=== PATIENT | male | born 2000 | race Caucasian/White ===

== ENCOUNTER 2024-07-29 14:36 | Inpatient (IN) ==
[2024-07-29 16:01] LABS: Basophils # (auto) 0.09 K/uL (0.00-0.20); Basophils % (auto) 1.3 %; Eosinophils # (auto) 0.45 K/uL (0.00-0.50); Eosinophils % (auto) 6.4 %; Hematocrit (blood only) 47.2 % (42.0-52.0); Hemoglobin 16.7 g/dl (14.0-18.0); Immature Granulocytes # (auto) 0.02 K/uL (0.01-0.20); Immature Granulocytes % (auto) 0.3 %; Lymphocytes # (auto) 1.92 K/uL (1.20-3.40); Lymphocytes % (auto) 27.4 %; Mean Corpuscular Hemoglobin 29.7 pg (25.0-34.0); Mean Corpuscular Hgb Conc 35.4 g/dL (32.0-36.0); Monocytes # (auto) 0.64 K/uL (0.11-0.59); Monocytes % (auto) 9.1 %; Neutrophils # (auto) 3.89 K/uL (1.40-6.50); Neutrophils % (auto) 55.5 %; Platelet Count 275 K/uL (130-400); RDW Coefficient of Variation 11.9 % (11.5-14.5); RDW Standard Deviation 36.3 fL (36.4-46.3); Red Blood Count 5.62 M/uL (4.70-6.10); White Blood Count 7.01 K/ul (4.8-10.8)
[2024-07-29 16:06] LABS: Appearance Urine Clear (Clear); Bilirubin Urine Negative (Negative); Blood Urine Negative (Negative); Color Urine Yellow; Glucose Urine UA Negative (Negative); Ketones Urine Trace (Negative); Leukocyte Esterase Urine Negative (Negative); Nitrite Urine Negative (Negative); Protein Urine Negative (Negative); Specific Gravity Urine 1.025 (1.000-1.030); Urobilinogen Urine Negative (Negative)
[2024-07-29 16:19] LABS: Acetaminophen < 3 ug/ml (10-30); Salicylate < 3.0 mg/dl (3.0-30)
[2024-07-29 16:52] LABS: Amphetamines+Metham, Urine Neg (Neg); Barbiturates, Urine Neg (Neg); Benzodiazepine, Urine Neg (Neg); Cocaine, Urine Neg (Neg); Fentanyl, Urine Neg (Neg); MDMA (Ecstacy), Urine Pos (Neg); Marijuana, Urine Neg (Neg); Methadone, Urine Neg (Neg); Opiate, Urine Neg (Neg); Phencyclidine, Urine Neg (Neg)
[2024-07-29 17:02] LABS: Albumin Globulin Ratio 1.7 (0.9-2); Albumin Level 4.7 gm/dl (3.4-5.0); Calcium 9.5 mg/dl (8.6-10.3); Creatinine Clr Calc Pharmacy 108.1 ml/min; Globulin 2.8 gm/dl (2.5-4.0); Potassium 4.5 mmol/L (3.5-5.1); Total Protein 7.5 gm/dl (6.0-8.3)
[2024-07-29 17:15] LABS: Thyroid Stimulating Hormone 1.104 uIu/ml (0.300-4.500)
--- NOTE | 2024-07-29 17:20 | Emergency Department Note ---
Impression & Plan Depression with suicidal ideation, Anxiety ED Provider Note NAME: DIANNA DONNELLY AGE: 24 SEX: M : 2000 ARRIVES VIA: Walk-In INFORMANT: Patient, ED PROVIDER(S): Dulce Henderson MD CHIEF COMPLAINT: Anxiety and suicidal thoughts HPI: This is a 24-year-old male presenting for anxiety/suicidal thoughts. Patient notes that he has been on multiple medication and Lexapro as well as trazodone. He is on venlafaxine as well. He notes that over the past few days/weeks his thoughts of anxiety been increasing. Last night he was concerned because he had thoughts of suicide by plan to overdose on trazodone. He has had passive suicidal thoughts over the past few days to weeks as well. He notes depression. He notes he is supposed to his counselor tomorrow. He did not tell his counselor about the specific plan to overdose. ROS: See above HPI for pertinent positives & negatives. A total of 10 systems reviewed and were otherwise negative. PHYSICAL EXAMINATION: General: resting comfortably in no acute distress Head: Normocephalic and atraumatic Eyes: Normal inspection, extraocular muscles intact Ear, nose, throat: Normal external exam Neck: Normal range of motion Respiratory: lungs clear to auscultation bilaterally Cardiovascular: Regular rate/rhythm, no murmur GI: soft, nontender, no guarding or rebound Extremities: nontender, moves all extremities Neuro: The patient awake and alert, appropriately conversive, no focal deficits, symmetric faces Skin: Warm, dry, and intact MEDICAL DECISION MAKING: This is a pleasant 24-year-old male presenting for anxiety/suicidal thoughts. Patient appears to have moderate insight into his own disease. He notes he feels increasingly anxious and depressed. He notes he is having suicidal thoughts as well as increasing stress from school work. His medical screening workup here is otherwise reassuring with normal lab work and urinalysis. With his plan yesterday to overdose, to have concern that patient may need further treatment. -Patient is agreeable to inpatient stay at this time. -Patient currently being evaluated 3 S. will sign outpatient oncoming physician, pending bed placement Differential diagnosis: SI, depression, anxiety Past Med/Surg History Problem List (Updated 07/29/24 @ 19:02 by Dulce Henderson MD) Anxiety (Acute) Depression with suicidal ideation (Acute) Social History Smoking Status: Never smoker Feels Safe at Home: Yes Gender Identity: Male Results & Data (ED) Vital Signs Vital Signs - 24 hr 07/29/24 14:44 07/29/24 17:56 Temperature 36.4 C L Temperature Source Skin Pulse Rate 66 Pulse Rate [Finger] 72 Pulse Rhythm [Finger] Regular Pulse Strength [Finger] Normal Respiratory Rate 20 18 Respiratory Effort / Characteristics Non-Labored Spontaneous Non-Labored Spontaneous Respiratory Depth Normal Normal Respiratory Pattern Regular Blood Pressure 146/92 H Blood Pressure [Left Arm] 133/76 Blood Pressure Mean 110 Blood Pressure Mean [Left Arm] 95 Blood Pressure Position [Left Arm] Semi-fowlers Pulse Oximetry 95 96 Oxygen Delivery Method Room Air Room Air Sepsis Recent Fever Within 48 Hours No Sepsis New/Unexplained Change in Mental Status N/A Sepsis Action Taken by Nursing No Action Required Laboratory Data 07/29/24 15:20 07/29/24 15:20 Lab Results 07/29/24 Range/Units 15:20 WBC 7.01 (4.8-10.8) K/ul RBC 5.62 (4.70-6.10) M/uL Hgb 16.7 (14.0-18.0) g/dl Hct 47.2 (42.0-52.0) % MCV 84.0 (80.0-100.0) fL MCH 29.7 (25.0-34.0) pg MCHC 35.4 (32.0-36.0) g/dL RDW Std Deviation 36.3 L (36.4-46.3) fL RDW Coeff of [place] 11.9 (11.5-14.5) % Plt Count 275 (130-400) K/uL MPV 10.0 (9.4-12.4) fL Immature Gran % (Auto) 0.3 % Neut % (Auto) 55.5 % Lymph % (Auto) 27.4 % [place] % (Auto) 9.1 % Eos % (Auto) 6.4 % Baso % (Auto) 1.3 % Neut # (Auto) 3.89 (1.40-6.50) K/uL Lymph # (Auto) 1.92 (1.20-3.40) K/uL [place] # (Auto) 0.64 H (0.11-0.59) K/uL Eos # (Auto) 0.45 (0.00-0.50) K/uL Baso # (Auto) 0.09 (0.00-0.20) K/uL Immature Gran # (Auto) 0.02 (0.01-0.20) K/uL Sodium 139 (136-145) mmol/L Potassium 4.5 (3.5-5.1) mmol/L Chloride 106 (98-107) mmol/L Carbon Dioxide 27 (21-32) mmol/L Anion Gap 6 (3-11) BUN 25 H (6-23) mg/dl Creatinine 1.19 (0.6-1.4) mg/dl Est Cr Clr Drug Dosing 108.1 ml/min eGFR 88.02 BUN/Creatinine Ratio 21.0 H (10-20) Glucose 91 (70-99(Fasting)) mg/dl Calcium 9.5 (8.6-10.3) mg/dl Total Bilirubin 1.0 (0.2-1.0) mg/dl AST 21 (13-39) U/L ALT 21 (7-52) U/L Alkaline Phosphatase 48 (34-104) U/L Total Protein 7.5 (6.0-8.3) gm/dl Albumin 4.7 (3.4-5.0) gm/dl Globulin 2.8 (2.5-4.0) gm/dl Albumin/Globulin Ratio 1.7 (0.9-2) TSH 1.104 (0.300-4.500) uIu/ml Urine Color Yellow Urine Appearance Clear (Clear) Urine pH 6.0 (4.5-7.5) Ur Specific [place] 1.025 (1.000-1.030) Urine Protein Negative (Negative) Urine Glucose (UA) Negative (Negative) Urine Ketones Trace H (Negative) Urine Blood Negative (Negative) Urine Nitrite Negative (Negative) Urine Bilirubin Negative (Negative) Urine Urobilinogen Negative (Negative) Ur Leukocyte Esterase Negative (Negative) Salicylates < 3.0 L (3.0-30) mg/dl Urine Opiates Screen Neg (Neg) Ur Methadone, Qual Neg (Neg) Urine Fentanyl Screen Neg (Neg) Acetaminophen < 3 L (10-30) ug/ml Urine Barbiturates Neg (Neg) Ur Phencyclidine (PCP) Neg (Neg) U Amphetamin/Meth Scrn Neg (Neg) MDMA (Ecstasy) Screen Pos H (Neg) U Benzodiazepines Scrn Neg (Neg) Ur Cocaine Metabolite Neg (Neg) U Marijuana (THC) Screen Neg (Neg) Ethyl Alcohol mg/dL < 10.0 (<10.0) mg/dl SARS-CoV-2, RNA, NAAT NEGATIVE (NEGATIVE) Discharge Plan Visit Data Chief Complaint: Mental Health Evaluation Stated Complaint: SEVERE ANXIETY AND SUICIDAL THOUGHTS ED Provider: Keyona Hernandez Discharge Problem: Depression with suicidal ideation, Anxiety Forms Stand Alone Forms: [facility], Suicide Prevention Resources Referrals [facility]: [facility] [Primary Care Provider] -
[2024-07-29] MEDS ORDERED: hydrOXYzine HCl 25 MG TAB PO PRN ×2 (21:52→22:52)
[2024-07-29] MEDS ORDERED: SODIUM CHLORIDE 0.65% NA SOLN 45 ML (OCEAN) PRN (22:52)
[2024-07-29] MEDS ORDERED: MAGNESIUM HYDROXIDE SUSP 30 ML UDC PO PRN (22:52)
[2024-07-29] MEDS ORDERED: ACETAMINOPHEN 325 MG TAB PO PRN (22:52)
[2024-07-29] MEDS ORDERED: ALUMINUM/MAGNESIUM SUSP 30 ML UDC PO PRN (22:52)
[2024-07-29] MEDS ORDERED: BISMUTH SUBSALICYLATE 262 MG CHEW PO PRN (22:52)
[2024-07-29] MEDS: traZODone HCL 50 MG TAB PO ONE (23:04)
--- NOTE | 2024-07-30 08:56 | History & Physical ---
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 Diagnostically consistent with major depressive disorder with suicidal ideation, generalized anxiety disorder with panic attacks, and sleep disturbance. Anxiety symptoms include rumination about academic performance and social interactions, with possible overlapping OCD features. Academic stressors are significant contributing factors to current presentation. History of restrictive eating disorder. Seems to have a lot of perfectionism and rigidity contributing to high academic standards and potentially contributing to why he experiences significant stress and panic symptoms related to large projects. Discussed medication treatment options in detail. Discussed risks, benefits and alternatives. Patient agreeable to medication adjustments including discontinuing Pristiq, decreasing Lexapro with earlier administration time, continuing trazodone, and adding clonidine for off-label use for anxiety/insomnia. Future medication considerations include potential switch to fluoxetine or alternative SSRI if OCD felt to be contributing to recent symptoms or trial of Trintellix versus augmentation strategies. Reviewed side effects including but not limited to: GI, PALMER, sexual side effects, and counseled on black box warning of potential for emergence of or increased SI and need to let staff know should this occur or should they feel unsafe. Also discussed importance of seeking emergency care following discharge if this side effect occurs in the future with trazodone and escitalopram; low BP/syncope with clonidine. Overall I spent a total of 85 minutes for this admission including review of chart records, review of labwork, direct evaluation of the patient, counseling the patient, ordering medication, risk assessment, discussion with the psychiatric liason RN and documentation in the electronic health record. (1) Depression with suicidal ideation: (2) MDD (major depressive disorder), recurrent episode, severe: (3) Generalized anxiety disorder with panic attacks: (4) Insomnia: Plan 07/30/2024: The patient was admitted to the [facility] ([facility]) on q15 min checks (behavioral with suicide precautions) for safety. The patient will participate in group, recreational, and milieu therapies and will be offered additional individual and family sessions as clinically appropriate. -Decrease escitalopram to 10mg daily with lunch -Start clonidine 0.05mg HS -Continue trazodone 50mg HS -Discontinue Pristiq - Rating Scales: - Adverse Childhood Experience Scale - OCD screening tool - Anxiety screening tool - Depression screening tool - Bipolar disorder screening tool - Borderline personality disorder screening tool Inventory Assets Strengths: supportive relationships, willing to get treatment Needs: safety and stabilization, medication adjustment, additional coping skills, increased outpatient services Suicide Risk Level Suicide Risk Level: High-Moderate (q15 min suicide checks) (depression and ruminative anxiety with SI and plan prior to admission but feels safe in the hospital, future-oriented about school, feels able to ask for support) Suicide Risk Level Comments: Risk Factors Assessment Male: Yes : Yes Do You Have Access To A Gun?: No Health Problems: No Mental Health Diagnoses: Yes Substance Use Disorders: No Previous Attempt: No Family History of Suicide: Yes Previous Psychiatric Hospitalization: No Hopelessness: No Protective Factors Assessment Employed: Yes Stable Relationships: Yes Supportive Family: Yes Good Rapport with Provider: Yes Psychiatric History Identifying Data DIANNA DONNELLY is a 24-year-old 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 Chief Complaint "I kind of feel lost, I'm coming here as a last resort". History of Present Illness He presents for psychiatric admission for worsening depression and SI with plan of overdosing on trazodone in the context of multiple psychosocial stressors including academic pressure. He's been having a lot of intrusive thoughts about anticipatory anxiety of projects and about his senior capstone. He's been ruminating on these concerns and struggles to set boundaries or move past these thoughts. This often keeps him awake at night until 5am or so but trazodone has been helping him get to sleep in the last week. Despite sleeping more he feels that his cognition/executive functioning is worse and then he's worried he's going to make a mistake and feels like "everything is crumbling" and this leads to a vicious cycle of not sleeping due to increased anxiety. This has been going on for almost three months and has continued to worsen. He endorses depressive symptoms including self-guilt, helplessness, decreased energy, concentration difficulty, diminished executive function, decision-making difficulties,decreased appetite, and decreased sleep. SI has been intermittent and chronic but shifted about a week ago to intensifying to the point of thinking about attempting on Monday (07/28/2024). He endorses significant anxiety including generalized worries, shakiness, urgency, easily overwhelmed and panic attacks as well as social anxiety. He is currently prescribed psychiatric medications: Pristiq 25mg daily (~2 weeks, unsure if any side effects, has coincided with highest intensity SI), escitalopram 15mg HS (started about 5 weeks ago, caused a lot of brain fog, dropped from 20mg two weeks ago ago, next Monday was supposed to drop to 10mg), propranolol 10mg (every other day for anxiety, helps a bit but sedating), trazodone 50mg HS (does help fall asleep and stay asleep but feels groggy the next day, lasts almost all day). He's been using caffeine pills to cope with fatigue and lack of sleep. Psychiatric ROS notable for no current nor history of symptoms of ivelisse, psychosis (did have some brief paranoia around age 14 &15 during a period of high anxiety) nor self-harm. Possible OCD-will replay conversations. History of eating disorder-age 13 started to restrict/"anorexia". More orthorexia recently, but he feels his relationship with food has improved. Past Psychiatric History Current Psychiatric Diagnosis: Unspecified depressive disorder Outpatient Services: [facility]-Dr. Bai for psychiatry therapy with Rodney Vides weekly Previous Psych Admissions: none Do You Have Access To A Gun?: No History of Previous Suicide Attempt: No Past Medication Trials: SSRIs-sertraline SNRIs-Effexor Wellbutrin no hx of buspar Vistaril Past Head Trauma/Neuro History History of Concussion/Seizure: No Allergies Allergy/AdvReac Type Severity Reaction Status Date / Time No Known Allergies Allergy Unverified 07/29/24 21:53 Home Medications Medication Instructions Recorded Confirmed Type desvenlafaxine succinate 25 mg 25 mg PO DAILY 07/30/24 07/30/24 History tablet,extended release 24 hr (Pristiq) escitalopram oxalate 10 mg tablet 15 mg PO DAILY 07/30/24 07/30/24 History (Lexapro) hydroxyzine HCl 25 mg tablet mg PO PRN Anxiety 07/30/24 History propranolol 10 mg tablet mg PO BID 07/30/24 History trazodone 50 mg tablet 50 mg PO HS PRN Insomnia 07/30/24 07/30/24 History Family History Family History of: Anxiety, Alcoholism/Drug Abuse and Suicide Attempts (father ) Family Mental Health History Comment: Father-30 yr sober, SI when young; Mom-anxiety Alcohol History Hx of Alcohol Use Over the Past 12 Months: No AUDIT Total Score: 0 Smoking Use Have You Smoked or Used Tobacco Products in the Last 30 Days: No Smoking Status: Never smoker Substance History Hx of Prescription Med Misuse Over the Past 12 Months: No Hx of Over the Counter Med Misuse Over the Past 12 Months: No Hx of Inhalent Misuse Over the Past 12 Months: No Hx of Organic Substance Use Over the Past 12 Months: No Hx of Illegal Substances/Street Drug Use Over Past 12 Months: No Problems as a Result of Past Substance Use: None Identified Personal History Living Arrangements: Home Highest Grade Completed: Some College (4th year in [employer]) 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) Marital Status: Single Beliefs That Will Affect Care: None Current Legal Problems: No Hx Legal Problems: No Patient History Medical History (Updated 07/30/24 @ 17:35 by Holly Mims MD) Anorexia Social History Smoking Status: Never smoker Preferred Language: Lithuanian Communication Ability: Effective 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: No Beliefs That Will Affect Care: None Feels Safe at Home: Yes Gender Identity: Male Assistive Devices: None Review of Systems Review of Systems: All systems reviewed & are unremarkable except as noted in HPI & below Physical Exam Psychiatric: Orientation: alert and oriented x 3 Apperance: appropriately dressed and appropriately groomed Eye Contact: good eye contact Motor Behavior: no abnormal motor movements Speech: normal rate/rhythm/volume of speech (soft) Affect: + depressed affect and + anxious affect Mood: + depressed mood and + anxious mood Thought Process: + circumstantial thought process Thought Content: reality based without delusions Suicidal Thoughts: denies suicidal plan and denies suicidal intent; + reports suicidal thoughts (intermittent ) Homicidal Thoughts: denies homicidal thoughts Hallucinations: no auditory hallucinations and no visual hallucinations Cognition: recent memory grossly intact, remote memory grossly intact, attention grossly intact and language grossly intact Estimated Intelligence: consistent with education level Insight: + fair insight Judgment: + fair judgement Vital Signs (Past 24 Hours): Last Vital Signs Temp 36.7 C 07/30/24 06:28 Pulse 64 07/30/24 06:29 Resp 16 07/30/24 06:28 BP 102/62 07/30/24 06:29 Pulse Ox 98 07/29/24 23:21 O2 Del Method Room Air 07/29/24 23:21 Exam Statement: A physical exam was performed in the ED by Dr. Henderson for the purposes of medical clearance. I accept that physical as correct and adequate for the purposes of the inpatient physical exam. Results & Data ([facility]) Laboratory Results Laboratory Results - last 24 hr 07/29/24 15:20 WBC 7.01 RBC 5.62 Hgb 16.7 Hct 47.2 MCV 84.0 MCH 29.7 MCHC 35.4 RDW Std Deviation 36.3 L RDW Coeff of [place] 11.9 Plt Count 275 MPV 10.0 Immature Gran % (Auto) 0.3 Neut % (Auto) 55.5 Lymph % (Auto) 27.4 [place] % (Auto) 9.1 Eos % (Auto) 6.4 Baso % (Auto) 1.3 Neut # (Auto) 3.89 Lymph # (Auto) 1.92 [place] # (Auto) 0.64 H Eos # (Auto) 0.45 Baso # (Auto) 0.09 Immature Gran # (Auto) 0.02 Sodium 139 Potassium 4.5 Chloride 106 Carbon Dioxide 27 Anion Gap 6 BUN 25 H Creatinine 1.19 Est Cr Clr Drug Dosing 108.1 eGFR 88.02 BUN/Creatinine Ratio 21.0 H Glucose 91 Calcium 9.5 Total Bilirubin 1.0 AST 21 ALT 21 Alkaline Phosphatase 48 Total Protein 7.5 Albumin 4.7 Globulin 2.8 Albumin/Globulin Ratio 1.7 TSH 1.104 Urine Color Yellow Urine Appearance Clear Urine pH 6.0 Ur Specific [place] 1.025 Urine Protein Negative Urine Glucose (UA) Negative Urine Ketones Trace H Urine Blood Negative Urine Nitrite Negative Urine Bilirubin Negative Urine Urobilinogen Negative Ur Leukocyte Esterase Negative Salicylates < 3.0 L Urine Opiates Screen Neg Ur Methadone, Qual Neg Urine Fentanyl Screen Neg Acetaminophen < 3 L Urine Barbiturates Neg Ur Phencyclidine (PCP) Neg U Amphetamin/Meth Scrn Neg Urine MDEA Pending MDMA (Ecstasy) Screen Pos H MDMA Pending Urine MDMA Pending U Benzodiazepines Scrn Neg Ur Cocaine Metabolite Neg U Marijuana (THC) Screen Neg Ethyl Alcohol mg/dL < 10.0 SARS-CoV-2, RNA, NAAT NEGATIVE Current Inpatient Medications Current Inpatient Medications: Current Inpatient Medications Acetaminophen (Acetaminophen 325 Mg Tab) 650 mg PO Q4H PRN PRN Reason: Headache or Minor Fever Stop: 08/28/24 22:51 Al Hydrox/Mg Hydrox/Simethicone (Aluminum/Magnesium Susp 30 Ml Udc) 30 ml PO Q4H PRN PRN Reason: GI Upset Stop: 08/28/24 22:51 Bismuth Subsalicylate (Bismuth Subsalicylate 262 Mg Chew) 2 tab PO Q30M PRN PRN Reason: Loose Stool/Diarrhea Stop: 08/28/24 22:51 Hydroxyzine HCl (Hydroxyzine Hcl 25 Mg Tab) 50 mg PO HSZ PRN PRN Reason: Insomnia Stop: 08/28/24 21:51 Hydroxyzine HCl (Hydroxyzine Hcl 25 Mg Tab) 25 mg PO Q4H PRN PRN Reason: Anxiety Stop: 08/28/24 22:51 Magnesium Hydroxide (Magnesium Hydroxide Susp 30 Ml Udc) 30 ml PO DAILY PRN PRN Reason: Constipation Stop: 08/28/24 22:51 Sodium Chloride (Sodium Chloride 0.65% Na Soln 45 Ml ([place])) 1 - 2 sprays NA PRN PRN PRN Reason: Nasal Dryness/Congestion Stop: 08/28/24 22:51
[2024-07-30] MEDS: ESCITALOPRAM OXALATE 10 MG TAB PO SCH (15:08)
[2024-07-30] MEDS: cloNIDine HCL 0.1 MG TAB PO SCH (22:05)
[2024-07-30] MEDS: traZODone HCL 50 MG TAB PO SCH (22:05)
--- NOTE | 2024-07-31 08:50 | Psychiatric Progress Note ---
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 Diagnostically consistent with major depressive disorder with suicidal ideation, generalized anxiety disorder with panic attacks, and sleep disturbance. Anxiety symptoms include rumination about academic performance and social interactions, with possible overlapping OCD features. Academic stressors are significant contributing factors to current presentation. History of restrictive eating disorder. Seems to have a lot of perfectionism and rigidity contributing to high academic standards and potentially contributing to why he experiences significant stress and panic symptoms related to large projects. A: Ongoing anxiety and depression with SI. Slept more easily last night with clonidine, no low BP, he consents to dose titration tonight to further target anxiety. Reviewed symptom questionnaires: MELQUIADES-7: 21, PHQ-9: 25, positive Tod BPD screen, negative Y-BOCS. Discussed medication treatment options in detail. Discussed risks, benefits and alternatives. Patient would like to start and consented to Paxil for depression/MELQUIADES. Reviewed side effects including but not limited to: GI, PALMER, sexual side effects, and counseled on black box warning of potential for emergence of or increased SI and need to let staff know should this occur or should they feel unsafe. Also discussed importance of seeking emergency care following discharge if this side effect occurs in the future. Overall, I spent a total of 50 minutes on this case including meeting with the patient, reviewing the chart, nursing report, multidisciplinary team meeting, orders, and documentation. (1) Depression with suicidal ideation: (2) MDD (major depressive disorder), recurrent episode, severe: (3) Generalized anxiety disorder with panic attacks: (4) Insomnia: (5) Borderline personality disorder: Plan 07/31/2024: -Discontinue escitalopram -Start Paxil 10mg daily 07/30/2024: The patient was admitted to the [facility] ([facility] mental health unit) on q15 min checks (behavioral with suicide precautions) for safety. The patient will participate in group, recreational, and milieu therapies and will be off ered additional individual and family sessions as clinically appropriate. -Decrease escitalopram to 10mg daily with lunch -Start clonidine 0.05mg HS -Continue trazodone 50mg HS -Discontinue Pristiq - Rating Scales: - Adverse Childhood Experience Scale - OCD screening tool - Anxiety screening tool - Depression screening tool - Bipolar disorder screening tool - Borderline personality disorder screening tool Inventory Assets Strengths: supportive relationships, willing to get treatment Needs: safety and stabilization, medication adjustment, additional coping skills, increased outpatient services Suicide Risk Level Suicide Risk Level: High-Moderate (q15 min suicide checks) (depression and ruminative anxiety with SI and plan prior to admission but feels safe in the hospital, future-oriented about school, feels able to ask for support) Suicide Risk Level Comments: Risk Factors Assessment Male: Yes : Yes Do You Have Access To A Gun?: No Health Problems: No Mental Health Diagnoses: Yes Substance Use Disorders: No Previous Attempt: No Family History of Suicide: Yes Previous Psychiatric Hospitalization: No Hopelessness: No Protective Factors Assessment Employed: Yes Stable Relationships: Yes Supportive Family: Yes Good Rapport with Provider: Yes Interval History Identifying Information DIANNA DONNELLY is a 24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 Chief Complaint "OK". Review of Systems Sleep Information Total Hours of Sleep: 6.25 Meal Information Percent Meal Consumed - Breakfast: 100 Percent Meal Consumed - Lunch: 100 Percent Meal Consumed - Dinner: 100 Subjective Subjective Patient was seen & assessed and interval progress reviewed with treatment team. Attending groups, rated mood as "unsure". Today reports "ok" mood. Still very anxious and depressed. Overwhelmed in thinking about how he will cope once he leaves the hospital. Endorses SI. Spoke to his mother who has done well on Paxil for many years. Fell asleep quickly last night. No dizziness or side effects fro m clonidine. No withdrawal side effects from Pristiq. Physical Exam Psychiatric Orientation: alert and oriented x 3 Apperance: appropriately dressed and appropriately groomed Eye Contact: good eye contact Motor Behavior: no abnormal motor movements Speech: normal rate/rhythm/volume of speech (soft) Affect: + depressed affect and + anxious affect Mood: + depressed mood and + anxious mood Thought Process: + circumstantial thought process Thought Content: reality based without delusions Suicidal Thoughts: denies suicidal plan and denies suicidal intent; + reports suicidal thoughts (intermittent ) Homicidal Thoughts: denies homicidal thoughts Hallucinations: no auditory hallucinations and no visual hallucinations Cognition: recent memory grossly intact, remote memory grossly intact, attention grossly intact and language grossly intact Estimated Intelligence: consistent with education level Insight: + fair insight Judgment: + fair judgement Vital Signs (Past 24 Hours) Last Vital Signs Temp 36.5 C 07/31/24 07:03 Pulse 75 07/31/24 07:06 Resp 16 07/31/24 07:03 BP 114/75 07/31/24 07:06 Pulse Ox 97 07/30/24 18:33 O2 Del Method Room Air 07/30/24 18:33 Results & Data ([facility]) Current Inpatient Medications Current Inpatient Medications: Current Inpatient Medications Acetaminophen (Acetaminophen 325 Mg Tab) 650 mg PO Q4H PRN PRN Reason: Headache or Minor Fever Stop: 08/28/24 22:51 Al Hydrox/Mg Hydrox/Simethicone (Aluminum/Magnesium Susp 30 Ml Udc) 30 ml PO Q4H PRN PRN Reason: GI Upset Stop: 08/28/24 22:51 Bismuth Subsalicylate (Bismuth Subsalicylate 262 Mg Chew) 2 tab PO Q30M PRN PRN Reason: Loose Stool/Diarrhea Stop: 08/28/24 22:51 Clonidine HCl (Clonidine Hcl 0.1 Mg Tab) 0.05 mg PO HS ARELI Stop: 08/29/24 21:59 Last Admin: 07/30/24 22:05 Dose: 0.05 mg Escitalopram Oxalate (Escitalopram Oxalate 10 Mg Tab) 10 mg PO DAILYBL ARELI Stop: 08/29/24 14:14 Last Admin: 07/30/24 22:05 Dose: 10 mg Hydroxyzine HCl (Hydroxyzine Hcl 25 Mg Tab) 50 mg PO HSZ PRN PRN Reason: Insomnia Stop: 08/28/24 21:51 Hydroxyzine HCl (Hydroxyzine Hcl 25 Mg Tab) 25 mg PO Q4H PRN PRN Reason: Anxiety Stop: 08/28/24 22:51 Magnesium Hydroxide (Magnesium Hydroxide Susp 30 Ml Udc) 30 ml PO DAILY PRN PRN Reason: Constipation Stop: 08/28/24 22:51 Sodium Chloride (Sodium Chloride 0.65% Na Soln 45 Ml ([place])) 1 - 2 sprays NA PRN PRN PRN Reason: Nasal Dryness/Congestion Stop: 08/28/24 22:51 Trazodone HCl (Trazodone Hcl 50 Mg Tab) 50 mg PO HS ARELI Stop: 08/29/24 21:59 Last Admin: 07/30/24 22:05 Dose: 50 mg Mental Health & Subst Abuse Tx Psychiatrist Name of Psychiatrist: Bhumika Gibson Psychiatrist's Date Of Appointment With Psychiatric Provider: 08/14/24 Time of Appointment with Psychiatrist: 1:30 PM Therapist Name of Therapist: Rodney Jin Therapist's Date of Therapist Appointment: 08/06/24 Time of Therapist Appointment: 5:00 PM Post Discharge Appointments Primary Care Physician Name Of Family Doctor/PCP: Pantera Pope Primary Care Provider Appointment Comment: [address] [place] [address] [address], [place] [address]
[2024-07-31] MEDS: PARoxetine HCL 10 MG TAB PO SCH (13:32)
[2024-07-31] MEDS: cloNIDine HCL 0.1 MG TAB PO SCH (21:11)
--- NOTE | 2024-08-01 08:41 | Psychiatric Progress Note ---
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 Diagnostically consistent with major depressive disorder with suicidal ideation, generalized anxiety disorder with panic attacks, and sleep disturbance. Anxiety symptoms include rumination about academic performance and social interactions, with possible overlapping OCD features. Academic stressors are significant contributing factors to current presentation. History of restrictive eating disorder. Seems to have a lot of perfectionism and rigidity contributing to high academic standards and potentially contributing to why he experiences significant stress and panic symptoms related to large projects. A: Ongoing anxiety and depression with SI. Tolerating medication changes but still with significant ruminations. Denies any SSRI withdrawal side effects from stopping escitalopram. Discussed option to trial abilify as off-label use for anxiety and depression augmentation. He consents to this and would like to try it. Discussed risks, benefits and alternatives. Reviewed side effects including but not limited to: movement (TD, NMS), cardiac (QTc prolongation), and metabolic (stroke, insulin resistance) and necessity for fasting lipid and glu cose labwork and AIMS done with score of 0. Reviewed strategies to help with cognitive distortions and build self-worth. Overall, I spent a total of 55 minutes on this case including meeting with the patient, reviewing the chart, nursing report, multidisciplinary team meeting, orders, and documentation. (1) Depression with suicidal ideation: (2) MDD (major depressive disorder), recurrent episode, severe: (3) Generalized anxiety disorder with panic attacks: (4) Insomnia: (5) Borderline personality disorder: Plan 08/01/2024: -Increased Paxil to 20mg daily -Add abilify 5mg daily -Fasting lipid panel, HbA1c, Vit D tomorrow AM 07/31/2024: -Discontinue escitalopram -Start Paxil 10mg daily 07/30/2024: The patient was admitted to the [facility] ([facility] mental health unit) on q15 min checks (behavioral with suicide precautions) for safety. The patient will participate in group, recreational, and milieu therapies and will be o ffered additional individual and family sessions as clinically appropriate. -Decrease escitalopram to 10mg daily with lunch -Start clonidine 0.05mg HS -Continue trazodone 50mg HS -Discontinue Pristiq - Rating Scales: - Adverse Childhood Experience Scale - OCD screening tool - Anxiety screening tool - Depression screening tool - Bipolar disorder screening tool - Borderline personality disorder screening tool Inventory Assets Strengths: supportive relationships, willing to get treatment Needs: safety and stabilization, medication adjustment, additional coping skills, increased outpatient services Suicide Risk Level Suicide Risk Level: High-Moderate (q15 min suicide checks) (depression and ruminative anxiety with SI and plan prior to admission but feels safe in the hospital, future-oriented about school, feels able to ask for support) Suicide Risk Level Comments: Risk Factors Assessment Male: Yes : Yes Do You Have Access To A Gun?: No Health Problems: No Mental Health Diagnoses: Yes Substance Use Disorders: No Previous Attempt: No Family History of Suicide: Yes Previous Psychiatric Hospitalization: No Hopelessness: No Protective Factors Assessment Employed: Yes Stable Relationships: Yes Supportive Family: Yes Good Rapport with Provider: Yes Interval History Identifying Information DIANNA DONNELLY is a 24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 Chief Complaint "That I'm not good enough". Review of Systems Sleep Information Total Hours of Sleep: 8 Meal Information Percent Meal Consumed - Breakfast: 100 Percent Meal Consumed - Lunch: 100 Percent Meal Consumed - Dinner: 100 Subjective Subjective Patient was seen & assessed and interval progress reviewed with nursing and social work. Going to groups. Did some puzzles with peers. Rated his mood "worried" last evening. Today he has been struggling with increased anxiety and depression. Notes that he had an anxiety attack and was observed with tearfulness by staff. He processes how his anxiety seemed to get set off by comparing his [employer] project to peers, negative feedback/harsh criticism by the project sponsor and increased pressure from professors. When we discussed what seems to be at the route of his anxiety he identifies that the idea of failure brings up a sense of "that I'm not good enough". He feels conflicted by his ongoing anxiety/depression and worrying he's made a mistake with inpatient treatment by getting himself into "an even deeper hole" with getting behind in his coursework. Discussed his BPD screening and he notes that the sense of chronic emptiness has been true for many years, he feels like almost a decade. Discussed how IOP with DBT could be very beneficial for this. Physical Exam Psychiatric Orientation: alert and oriented x 3 Apperance: appropriately dressed and appropriately groomed Eye Contact: good eye contact Motor Behavior: no abnormal motor movements Speech: normal rate/rhythm/volume of speech (soft) Affect: + depressed affect and + anxious affect Mood: + depressed mood and + anxious mood Thought Process: + circumstantial thought process and + perseveration Thought Content: reality based without delusions Suicidal Thoughts: denies suicidal plan and denies suicidal intent; + reports suicidal thoughts Homicidal Thoughts: denies homicidal thoughts Hallucinations: no auditory hallucinations and no visual hallucinations Cognition: recent memory grossly intact, remote memory grossly intact, attention grossly intact and language grossly intact Estimated Intelligence: consistent with education level Insight: + fair insight Judgment: + fair judgement Vital Signs (Past 24 Hours) Last Vital Signs Temp 36.5 C 08/01/24 06:00 Pulse 59 L 08/01/24 06:00 Resp 18 07/31/24 20:47 BP 111/70 08/01/24 06:31 Pulse Ox 96 07/31/24 20:47 O2 Del Method Room Air 07/31/24 20:47 Results & Data ([facility]) Current Inpatient Medications Current Inpatient Medications: Current Inpatient Medications Acetaminophen (Acetaminophen 325 Mg Tab) 650 mg PO Q4H PRN PRN Reason: Headache or Minor Fever Stop: 08/28/24 22:51 Al Hydrox/Mg Hydrox/Simethicone (Aluminum/Magnesium Susp 30 Ml Udc) 30 ml PO Q4H PRN PRN Reason: GI Upset Stop: 08/28/24 22:51 Bismuth Subsalicylate (Bismuth Subsalicylate 262 Mg Chew) 2 tab PO Q30M PRN PRN Reason: Loose Stool/Diarrhea Stop: 08/28/24 22:51 Clonidine HCl (Clonidine Hcl 0.1 Mg Tab) 0.1 mg PO HS ARELI Stop: 08/30/24 21:59 Last Admin: 07/31/24 21:11 Dose: 0.1 mg Hydroxyzine HCl (Hydroxyzine Hcl 25 Mg Tab) 50 mg PO HSZ PRN PRN Reason: Insomnia Stop: 08/28/24 21:51 Hydroxyzine HCl (Hydroxyzine Hcl 25 Mg Tab) 25 mg PO Q4H PRN PRN Reason: Anxiety Stop: 08/28/24 22:51 Magnesium Hydroxide (Magnesium Hydroxide Susp 30 Ml Udc) 30 ml PO DAILY PRN PRN Reason: Constipation Stop: 08/28/24 22:51 Paroxetine HCl (Paroxetine Hcl 20 Mg Tab) 20 mg PO QAM ARELI Stop: 08/31/24 08:59 Sodium Chloride (Sodium Chloride 0.65% Na Soln 45 Ml ([place])) 1 - 2 sprays NA PRN PRN PRN Reason: Nasal Dryness/Congestion Stop: 08/28/24 22:51 Trazodone HCl (Trazodone Hcl 50 Mg Tab) 50 mg PO HS ARELI Stop: 08/29/24 21:59 Last Admin: 07/31/24 21:10 Dose: 50 mg Mental Health & Subst Abuse Tx Psychiatrist Name of Psychiatrist: Bhumika Gibson Psychiatrist's Date Of Appointment With Psychiatric Provider: 08/14/24 Time of Appointment with Psychiatrist: 1:30 PM Therapist Name of Therapist: Rodney Jin Therapist's Date of Therapist Appointment: 08/06/24 Time of Therapist Appointment: 5:00 PM Post Discharge Appointments Primary Care Physician Name Of Family Doctor/PCP: Pantera Pope Primary Care Provider Appointment Comment: [address] [place] [address]. [address], [place] [address]
[2024-08-01] MEDS: PARoxetine HCL 20 MG TAB PO SCH (08:57)
[2024-08-01] MEDS: ARIPiprazole 5 MG TAB PO SCH (15:05)
--- NOTE | 2024-08-02 09:05 | Psychiatric Progress Note ---
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 Diagnostically consistent with major depressive disorder with suicidal ideation, generalized anxiety disorder with panic attacks, and sleep disturbance. Anxiety symptoms include rumination about academic performance and social interactions, with possible overlapping OCD features. Academic stressors are significant contributing factors to current presentation. History of restrictive eating disorder. Seems to have a lot of perfectionism and rigidity contributing to high academic standards and potentially contributing to why he experiences significant stress and panic symptoms related to large projects. A: Ongoing anxiety and depression with SI but less ruminative and a little less anxious today. Abilify causing sedation so will switch to HS dosing and lower dose tonight since he already got his AM dose. May then need to titrate HS dose back to 5mg tomorrow depending on efficacy and tolerability. Fasting labwork held until tomorrow due to lab collection delays this morning. Overall, I spent a total of 35 minutes on this case including meeting with the patient, reviewing the chart, nursing report, multidisciplinary team meeting, orders, and documentation. (1) Depression with suicidal ideation: (2) MDD (major depressive disorder), recurrent episode, severe: (3) Generalized anxiety disorder with panic attacks: (4) Insomnia: (5) Borderline personality disorder: Plan 08/02/2024: -Reduce dose of abilify to 2mg HS tonight, if tolerated tonight can then consider increase back to 5mg at HS tomorrow night 08/01/2024: -Increased Paxil to 20mg daily -Add abilify 5mg daily -Fasting lipid panel, HbA1c, Vit D tomorrow AM 07/31/2024: -Discontinue escitalopram -Start Paxil 10mg daily 07/30/2024: The [facility] on q15 min checks (behavioral with suicide precautions) for safety. The patient will participate in group, recreational, and milieu therapies and will be offered additional individual and family sessions as clinically appropriate. -Decrease escitalopram to 10mg daily with lunch -Start clonidine 0.05mg HS -Continue trazodone 50mg HS -Discontinue Pristiq - Rating Scales: - Adverse Childhood Experience Scale - OCD screening tool - Anxiety screening tool - Depression screening tool - Bipolar disorder screening tool - Borderline personality disorder screening tool Inventory Assets Strengths: supportive relationships, willing to get treatment Needs: safety and stabilization, medication adjustment, additional coping skills, increased outpatient services Suicide Risk Level Suicide Risk Level: Moderate (q15 min suicide checks) (depression and ruminative anxiety with SI and plan prior to admission but feels safe in the hospital, future-oriented about school, feels able to ask for support) Suicide Risk Level Comments: Risk Factors Assessment Male: Yes : Yes Do You Have Access To A Gun?: No Health Problems: No Mental Health Diagnoses: Yes Substance Use Disorders: No Previous Attempt: No Family History of Suicide: Yes Previous Psychiatric Hospitalization: No Hopelessness: No Protective Factors Assessment Employed: Yes Stable Relationships: Yes Supportive Family: Yes Good Rapport with Provider: Yes Interval History Identifying Information DIANNA DONNELLY is a 24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 Chief Complaint "A little drowsy". Review of Systems Sleep Information Total Hours of Sleep: 7.25 Meal Information Percent Meal Consumed - Breakfast: 100 Percent Meal Consumed - Lunch: 100 Percent Meal Consumed - Dinner: 100 Subjective Subjective Patient was seen & assessed and interval progress reviewed with treatment team. Attending all groups. Rated his mood as "tired". Today has more drowsiness , worse after taking abilify and napped last night after initial abilify dose. Did sleep better, fell asleep easily. Today feels like his ruminations are slightly less in that he can move past anxious thought a little more. Ongoing concerns about how he can manage his work given executive function challenges with the depression. Physical Exam Psychiatric Orientation: alert and oriented x 3 Apperance: appropriately dressed and appropriately groomed Eye Contact: good eye contact Motor Behavior: no abnormal motor movements Speech: normal rate/rhythm/volume of speech (soft) Affect: + depressed affect and + anxious affect Mood: + depressed mood and + anxious mood Thought Process: + circumstantial thought process Thought Content: reality based without delusions Suicidal Thoughts: denies suicidal plan and denies suicidal intent; + reports suicidal thoughts Homicidal Thoughts: denies homicidal thoughts Hallucinations: no auditory hallucinations and no visual hallucinations Cognition: recent memory grossly intact, remote memory grossly intact, attention grossly intact and language grossly intact Estimated Intelligence: consistent with education level Insight: + fair insight Judgment: + fair judgement Vital Signs (Past 24 Hours) Last Vital Signs Temp 36.6 C 08/02/24 06:00 Pulse 73 08/02/24 06:19 Resp 16 08/02/24 06:00 BP 106/69 08/02/24 06:19 Pulse Ox 97 08/02/24 06:00 O2 Del Method Room Air 08/02/24 06:00 Results & Data ([facility]) Current Inpatient Medications Current Inpatient Medications: Current Inpatient Medications Acetaminophen (Acetaminophen 325 Mg Tab) 650 mg PO Q4H PRN PRN Reason: Headache or Minor Fever Stop: 08/28/24 22:51 Al Hydrox/Mg Hydrox/Simethicone (Aluminum/Magnesium Susp 30 Ml Udc) 30 ml PO Q4H PRN PRN Reason: GI Upset Stop: 08/28/24 22:51 Aripiprazole (Aripiprazole 5 Mg Tab) 5 mg PO QAM ARELI Stop: 08/31/24 14:59 Last Admin: 08/02/24 08:12 Dose: 5 mg Bismuth Subsalicylate (Bismuth Subsalicylate 262 Mg Chew) 2 tab PO Q30M PRN PRN Reason: Loose Stool/Diarrhea Stop: 08/28/24 22:51 Clonidine HCl (Clonidine Hcl 0.1 Mg Tab) 0.1 mg PO HS ARELI Stop: 08/30/24 21:59 Last Admin: 08/01/24 21:03 Dose: 0.1 mg Hydroxyzine HCl (Hydroxyzine Hcl 25 Mg Tab) 50 mg PO HSZ PRN PRN Reason: Insomnia Stop: 08/28/24 21:51 Hydroxyzine HCl (Hydroxyzine Hcl 25 Mg Tab) 25 mg PO Q4H PRN PRN Reason: Anxiety Stop: 08/28/24 22:51 Magnesium Hydroxide (Magnesium Hydroxide Susp 30 Ml Udc) 30 ml PO DAILY PRN PRN Reason: Constipation Stop: 08/28/24 22:51 Paroxetine HCl (Paroxetine Hcl 20 Mg Tab) 20 mg PO QAM ARELI Stop: 08/31/24 08:59 Last Admin: 08/02/24 08:12 Dose: 20 mg Sodium Chloride (Sodium Chloride 0.65% Na Soln 45 Ml ([place])) 1 - 2 sprays NA PRN PRN PRN Reason: Nasal Dryness/Congestion Stop: 08/28/24 22:51 Trazodone HCl (Trazodone Hcl 50 Mg Tab) 50 mg PO HS ARELI Stop: 08/29/24 21:59 Last Admin: 08/01/24 21:02 Dose: 50 mg Mental Health & Subst Abuse Tx Psychiatrist Name of Psychiatrist: Bhumika Gibson Psychiatrist's Date Of Appointment With Psychiatric Provider: 08/14/24 Time of Appointment with Psychiatrist: 1:30 PM Therapist Name of Therapist: Rodney Jin Therapist's Date of Therapist Appointment: 08/06/24 Time of Therapist Appointment: 5:00 PM Post Discharge Appointments Primary Care Physician Name Of Family Doctor/PCP: Pantera Pope Primary Care Provider Appointment Comment: [address] [facility] [address], [place] [address]
[2024-08-02 17:48] LABS: MDA negative; MDEA negative; MDMA (Ecstasy) Urine, Confirm negative
[2024-08-02] MEDS: ARIPiprazole 2 MG TAB PO SCH (22:52)
[2024-08-03 08:06] LABS: Estimated Average Glucose 103 mg/dl; Hemoglobin A1C 5.2 % (4.5-5.6)
[2024-08-03 08:08] LABS: Chol HDL Ratio 3.5 (0-5)
[2024-08-03] MEDS: CHOLECALCIFEROL 125 MCG (5,000 UNITS) TAB PO SCH (13:22)
--- NOTE | 2024-08-03 16:44 | Psychiatric Progress Note ---
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 A:Reviewed patient's mood history and concern for persistent depressive disorder. Patient sensitive to sedation effects of medication and will dose Abilify and paroxetine at bedtime. He presents a strong family history of depression. Labs resulted with an insufficient vitamin D and we will start supplementation. Today we discussed cognitive behavioral therapy including the thought mood behavior cycle, negative automatic thoughts, and a thought record. Overall, I spent a total of 45 minutes on this case including meeting with the patient, reviewing the chart, nursing report, multidisciplinary team meeting, orders, and documentation. (1) Generalized anxiety disorder with panic attacks: (2) Persistent depressive disorder with anxious distress, currently moderate: (3) Borderline personality disorder: (4) Insomnia: Plan 08/03/2024: Start vitamin D 5000 units daily. Decrease clonidine to 0.05 mg at bedtime. Schedule paroxetine 20 mg at bedtime. 08/02/2024: -Reduce dose of abilify to 2mg HS tonight, if tolerated tonight can then consider increase back to 5mg at HS tomorrow night 08/01/2024: -Increased Paxil to 20mg daily -Add abilify 5mg daily -Fasting lipid panel, HbA1c, Vit D tomorrow AM 07/31/2024: -Discontinue escitalopram -Start Paxil 10mg daily 07/30/2024: The patient was admitted to the [facility] ([facility] mental health unit) on q15 min checks (behavioral with suicide precautions) for safety. The patient will participate in group, recreational, and milieu therapies and will be offered additional individual and family sessions as clinically appropriate. -Decrease escitalopram to 10mg daily with lunch -Start clonidine 0.05mg HS -Continue trazodone 50mg HS -Discontinue Pristiq - Rating Scales: - Adverse Childhood Experience Scale - OCD screening tool - Anxiety screening tool - Depression screening tool - Bipolar disorder screening tool - Borderline personality disorder screening tool Inventory Assets Strengths: supportive relationships, willing to get treatment Needs: safety and stabilization, medication adjustment, additional coping skills, increased outpatient services Suicide Risk Level Suicide Risk Level: Moderate (q15 min suicide checks) (depression and ruminative anxiety with SI and plan prior to admission but feels safe in the hospital, f uture-oriented about school, feels able to ask for support) Suicide Risk Level Comments: Risk Factors Assessment Male: Yes : Yes Do You Have Access To A Gun?: No Health Problems: No Mental Health Diagnoses: Yes Substance Use Disorders: No Previous Attempt: No Family History of Suicide: Yes Previous Psychiatric Hospitalization: No Hopelessness: No Protective Factors Assessment Employed: Yes Stable Relationships: Yes Supportive Family: Yes Good Rapport with Provider: Yes Interval History Identifying Information DIANNA DONNELLY is a 24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 Chief Complaint Anxiety, Depression Review of Systems Sleep Information Total Hours of Sleep: 5.5 Meal Information Percent Meal Consumed - Breakfast: 85 Percent Meal Consumed - Lunch: 100 Percent Meal Consumed - Dinner: 100 Subjective Subjective Patient was seen & assessed and interval progress reviewed with treatment team nursing and social work Patient reports having increased fatigue from Abilify. Reports less racing thoughts. Reports longstanding insomnia. Endorses chronic depression with anhedonia, disrupted sleep, poor self-esteem. Says his coping skills have stopped working. Has tried different antidepressants with poor effect. Family history of depression in mother and father. Mother has improved on Paxil and trazodone. Reports constantly questioning himself and his actions. Fear of future anxiety. Says he does not value himself. 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 Denies past periods of decreased need for sleep with elevated energy, mood, goal directed activity. Reports Wellbutrin was ineffective in the past for depression. Physical Exam Mental Examination Appearance: Well Groomed Eye Contact: Maintains Eye Contact Motor Behavior: Unremarkable Speech: Normal and Soft Mood: Anxious Affect: Calm and Constricted Thought Process: Intact Thought Content: Racing Hallucinations: None Insight: Fair Judgement: Fair Vital Signs (Past 24 Hours) Last Vital Signs Temp 36.4 C L 08/03/24 06:13 Pulse 81 08/03/24 06:13 Resp 16 08/03/24 06:13 BP 104/66 08/03/24 06:13 Pulse Ox 97 08/02/24 06:00 O2 Del Method Room Air 08/02/24 06:00 Results & Data ([facility]) Laboratory Results Laboratory Results - last 24 hr 07/29/24 08/03/24 15:20 07:32 Estimat Average Glucose 103 Hemoglobin A1c 5.2 Triglycerides 65 Cholesterol 155 LDL Cholesterol, Calc 98 VLDL Cholesterol, Calc 13 HDL Cholesterol 44 Cholesterol/HDL Ratio 3.5 25-OH Vitamin D Total 20.6 L Urine MDEA negative MDMA negative Urine MDMA negative Current Inpatient Medications Current Inpatient Medications: Current Inpatient Medications Acetaminophen (Acetaminophen 325 Mg Tab) 650 mg PO Q4H PRN PRN Reason: Headache or Minor Fever Stop: 08/28/24 22:51 Al Hydrox/Mg Hydrox/Simethicone (Aluminum/Magnesium Susp 30 Ml Udc) 30 ml PO Q4H PRN PRN Reason: GI Upset Stop: 08/28/24 22:51 Aripiprazole (Aripiprazole 2 Mg Tab) 2 mg PO [facility] Stop: 09/01/24 21:59 Last Admin: 08/02/24 22:52 Dose: 2 mg Bismuth Subsalicylate (Bismuth Subsalicylate 262 Mg Chew) 2 tab PO Q30M PRN PRN Reason: Loose Stool/Diarrhea Stop: 08/28/24 22:51 Clonidine HCl (Clonidine Hcl 0.1 Mg Tab) 0.05 mg PO [facility] Stop: 09/02/24 21:59 Hydroxyzine HCl (Hydroxyzine Hcl 25 Mg Tab) 50 mg PO HSZ PRN PRN Reason: Insomnia Stop: 08/28/24 21:51 Hydroxyzine HCl (Hydroxyzine Hcl 25 Mg Tab) 25 mg PO Q4H PRN PRN Reason: Anxiety Stop: 08/28/24 22:51 Magnesium Hydroxide (Magnesium Hydroxide Susp 30 Ml Udc) 30 ml PO DAILY PRN PRN Reason: Constipation Stop: 08/28/24 22:51 Paroxetine HCl (Paroxetine Hcl 20 Mg Tab) 20 mg PO ARELI Stop: 09/02/24 21:59 Sodium Chloride (Sodium Chloride 0.65% Na Soln 45 Ml ([place])) 1 - 2 sprays NA PRN PRN PRN Reason: Nasal Dryness/Congestion Stop: 08/28/24 22:51 Trazodone HCl (Trazodone Hcl 50 Mg Tab) 50 mg PO HS ARELI Stop: 08/29/24 21:59 Last Admin: 08/02/24 22:02 Dose: 50 mg Vitamin D (Cholecalciferol 125 Mcg (5,000 Units) Tab) 125 mcg PO QAM ARELI Stop: 09/02/24 12:59 Last Admin: 08/03/24 13:22 Dose: 125 mcg Mental Health & Subst Abuse Tx Psychiatrist Name of Psychiatrist: Bhumika Gibson Psychiatrist's Date Of Appointment With Psychiatric Provider: 08/14/24 Time of Appointment with Psychiatrist: 1:30 PM Psychiatrist Release of Information: Obtained and Reviewed Therapist [facility]'s Date of Therapist Appointment: 08/06/24 Time of Therapist Appointment: 5:00 PM Therapist Release of Information: Obtained and Reviewed Post Discharge Appointments Primary Care Physician Name Of Family Doctor/PCP: Pantera Pope Primary Care Provider Appointment Comment: [address] [place] [address] [address] Floor, [place] [address] Primary Care Release of Information: Obtained and Reviewed Other #1: Name of Aftercare Appointment: [facility] Date of Aftercare Appointment: 08/06/24 Time of Aftercare Appointment: 10am Aftercare Appointment Comment: Post Hospital meeting scheduled Release of Information Aftercare Appointment: Obtained and Reviewed #2: Name of Aftercare Appointment: [facility] Phone Number of Aftercare Appointment: Aftercare Appointment Comment: In network psychiatry if interested #3: Name of Aftercare Appointment: [facility] Phone Number of Aftercare Appointment: Aftercare Appointment Comment: In network psychiatry if interested. They have telehealth available #4: Name of Aftercare Appointment: [facility] Phone Number of Aftercare Appointment: Aftercare Appointment Comment: 9-12hrs a week for 12weeks. Call to self refer if interested in the summer Contact Information Discharge Discharge Address: [address] [place] [id number]
[2024-08-03] MEDS: PARoxetine HCL 20 MG TAB PO SCH (21:46)
[2024-08-03] MEDS: cloNIDine HCL 0.1 MG TAB PO SCH (21:46)
--- NOTE | 2024-08-04 13:54 | Discharge Summary ---
Date of Service August 04, 2024 History of Present Illness He presents for psychiatric admission for worsening depression and SI with plan of overdosing on trazodone in the context of multiple psychosocial stressors including academic pressure. He's been having a lot of intrusive thoughts about anticipatory anxiety of projects and about his senior capstone. He's been ruminating on these concerns and struggles to set boundaries or move past these thoughts. This often keeps him awake at night until 5am or so but trazodone has been helping him get to sleep in the last week. Despite sleeping more he feels that his cognition/executive functioning is worse and then he's worried he's going to make a mistake and feels like "everything is crumbling" and this leads to a vicious cycle of not sleeping due to increased anxiety. This has been going on for almost three months and has continued to worsen. He endorses depressive symptoms including self-guilt, helplessness, decreased energy, concentration difficulty, diminished executive function, decision-making difficulties,decreased appetite, and decreased sleep. SI has been intermittent and chronic but shifted about a week ago to intensifying to the point of thinking about attempting on Monday (07/28/2024). He endorses significant anxiety including generalized worries, shakiness, urgency, easily overwhelmed and panic attacks as well as social anxiety. He is currently prescribed psychiatric medications: Pristiq 25mg daily (~2 weeks, unsure if any side effects, has coincided with highest intensity SI), escitalopram 15mg HS (started about 5 weeks ago, caused a lot of brain fog, dropped from 20mg two weeks ago ago, next Monday was supposed to drop to 10mg), propranolol 10mg (every other day for anxiety, helps a bit but sedating), trazodone 50mg HS (does help fall asleep and stay asleep but feels groggy the next day, lasts almost all day). He's been using caffeine pills to cope with fatigue and lack of sleep. Psychiatric ROS notable for no current nor history of symptoms of ivelisse, psychosis (did have some brief paranoia around age 14 &15 during a period of high anxiety) nor self-harm. Possible OCD-will replay conversations. History of eating disorder-age 13 started to restrict/"anorexia". More orthorexia recently, but he feels his relationship with food has improved. Physical Exam Mental Examination Appearance: Well Groomed Eye Contact: Maintains Eye Contact Motor Behavior: Unremarkable Speech: Normal and Soft Mood: Anxious Affect: Calm and Constricted Thought Process: Intact Thought Content: Racing Hallucinations: None Insight: Fair Judgement: Fair Vital Signs (Past 24 Hours) Last Vital Signs Temp 36.5 C 08/04/24 06:26 Pulse 67 08/04/24 06:27 Resp 16 08/04/24 06:26 BP 92/3 L 08/04/24 06:27 Pulse Ox 97 08/02/24 06:00 O2 Del Method Room Air 08/02/24 06:00 Principal Diagnosis Generalized anxiety disorder with panic attacks: Psychiatric Data See daily stay summary. In short, safety was maintained and the patient was cooperative with care. Medication changes included starting Paroxetine 20mg HS, Clonidine 0.05mg HS, Vit D 5000u daily, Abilify 2mg HS, Trazodone 50mg HS and they tolerated this well. A family session was held and safety plan was completed prior to discharge. Prior to discharge, pt was educated about CBT, we completed a thought record, and was counseled on general self care strategies. He presented denial of SI, was future and goal oriented, and presented with a brighter and more reactive affect. Day of Discharge Assessment Today the patient voices readiness for discharge. They note improvement in mood and deny thoughts to harm self or others. Thoughts remain organized and they are improved from admission. There is no evidence of psychosis. They agree to take mediations as prescribed and keep follow-up appointments. They are stable for discharge to outpatient level of care. Transition of Care Transition Of Care Record: was reviewed with the patient Advance Directives Advance Directives Information Provided: Yes Advance Directives: No Mental Health Advance Directive: No Advance Directives on File: No Living Will: No Power of Grape Pruner: No Advance Directives Reason:: Declines as Mental Health Visit. Suicide Risk Level Suicide Risk Level Comments: Risk Factors Assessment Male: Yes : Yes Do You Have Access To A Gun?: No Health Problems: No Mental Health Diagnoses: Yes Substance Use Disorders: No Previous Attempt: No Family History of Suicide: Yes Previous Psychiatric Hospitalization: No Hopelessness: No Protective Factors Assessment Employed: Yes Stable Relationships: Yes Supportive Family: Yes Good Rapport with Provider: Yes Discharge Data Lab Results 07/29/24 08/03/24 15:20 07:32 WBC 7.01 RBC 5.62 Hgb 16.7 Hct 47.2 MCV 84.0 MCH 29.7 MCHC 35.4 RDW Std Deviation 36.3 L RDW Coeff of [place] 11.9 Plt Count 275 MPV 10.0 Immature Gran % (Auto) 0.3 Neut % (Auto) 55.5 Lymph % (Auto) 27.4 Bates % (Auto) 9.1 Eos % (Auto) 6.4 Baso % (Auto) 1.3 Neut # (Auto) 3.89 Lymph # (Auto) 1.92 Bates # (Auto) 0.64 H Eos # (Auto) 0.45 Baso # (Auto) 0.09 Immature Gran # (Auto) 0.02 Sodium 139 Potassium 4.5 Chloride 106 Carbon Dioxide 27 Anion Gap 6 BUN 25 H Creatinine 1.19 Est Cr Clr Drug Dosing 108.1 eGFR 88.02 BUN/Creatinine Ratio 21.0 H Glucose 91 Estimat Average Glucose 103 Hemoglobin A1c 5.2 Calcium 9.5 Total Bilirubin 1.0 AST 21 ALT 21 Alkaline Phosphatase 48 Total Protein 7.5 Albumin 4.7 Globulin 2.8 Albumin/Globulin Ratio 1.7 Triglycerides 65 Cholesterol 155 LDL Cholesterol, Calc 98 VLDL Cholesterol, Calc 13 HDL Cholesterol 44 Cholesterol/HDL Ratio 3.5 25-OH Vitamin D Total 20.6 L TSH 1.104 Urine Color Yellow Urine Appearance Clear Urine pH 6.0 Ur Specific [place] 1.025 Urine Protein Negative Urine Glucose (UA) Negative Urine Ketones Trace H Urine Blood Negative Urine Nitrite Negative Urine Bilirubin Negative Urine Urobilinogen Negative Ur Leukocyte Esterase Negative Salicylates < 3.0 L Urine Opiates Screen Neg Ur Methadone, Qual Neg Urine Fentanyl Screen Neg Acetaminophen < 3 L Urine Barbiturates Neg Ur Phencyclidine (PCP) Neg U Amphetamin/Meth Scrn Neg Urine MDEA negative MDMA (Ecstasy) Screen Pos H MDMA negative Urine MDMA negative U Benzodiazepines Scrn Neg Ur Cocaine Metabolite Neg U Marijuana (THC) Screen Neg Ethyl Alcohol mg/dL < 10.0 SARS-CoV-2, RNA, NAAT NEGATIVE Hospital Course (1) Generalized anxiety disorder with panic attacks: (2) Persistent depressive disorder with anxious distress, currently moderate: (3) Borderline personality disorder: (4) Insomnia: Plan 08/03/2024: Start vitamin D 5000 units daily. Decrease clonidine to 0.05 mg at bedtime. Schedule paroxetine 20 mg at bedtime. 08/02/2024: -Reduce dose of abilify to 2mg HS tonight, if tolerated tonight can then consider increase back to 5mg at HS tomorrow night 08/01/2024: -Increased Paxil to 20mg daily -Add abilify 5mg daily -Fasting lipid panel, HbA1c, Vit D tomorrow AM 07/31/2024: -Discontinue escitalopram -Start Paxil 10mg daily 07/30/2024: The patient was [facility] to the [facility] on q15 min checks (behavioral with suicide precautions) for safety. The patient will participate in group, recreational, and milieu therapies and will be offered additional individual and family sessions as clinically appropriate. -Decrease escitalopram to 10mg daily with lunch -Start clonidine 0.05mg HS -Continue trazodone 50mg HS -Discontinue Pristiq - Rating Scales: - Adverse Childhood Experience Scale - OCD screening tool - Anxiety screening tool - Depression screening tool - Bipolar disorder screening tool - Borderline personality disorder screening tool Mental Health & Subst Abuse Tx Psychiatrist Name of Psychiatrist: Bhumika Gibson Psychiatrist's Date Of Appointment With Psychiatric Provider: 08/14/24 Time of Appointment with Psychiatrist: 1:30 PM Psychiatrist Release of Information: Obtained and Reviewed Therapist Name of Therapist: Rodney Vides [facility] Therapist's Date of Therapist Appointment: 08/06/24 Time of Therapist Appointment: 5:00 PM Therapist Release of Information: Obtained and Reviewed Post Discharge Appointments Primary Care Physician Name Of Family Doctor/PCP: Pantera Pope Primary Care Provider Appointment Comment: [address] [place] [address] [address], [place] [address] Primary Care Release of Information: Obtained and Reviewed Other #1: Name of Aftercare Appointment: [facility] Date of Aftercare Appointment: 08/06/24 Time of Aftercare Appointment: 10am Aftercare Appointment Comment: Post Hospital meeting scheduled Release of Information Aftercare Appointment: Obtained and Reviewed #2: Name of Aftercare Appointment: [facility] Phone Number of Aftercare Appointment: Aftercare Appointment Comment: In network psychiatry if interested #3: Name of Aftercare Appointment: [facility] Phone Number of Aftercare Appointment: Aftercare Appointment Comment: In network psychiatry if interested. They have telehealth available #4: Name of Aftercare Appointment: [facility] Phone Number of Aftercare Appointment: Aftercare Appointment Comment: 9-12hrs a week for 12weeks. Call to self refer if interested in the summer Contact Information Discharge Discharge Address: [address] [place] [address] Discharge Plan Discharge Items Patient Disposition: Home - Self-Care Reason For Visit: UNSPECIFIED DEPRESSIVE DISORDER Discharge Diagnosis: (1) Generalized anxiety disorder with panic attacks: (2) Persistent depressive disorder with anxious distress, currently moderate: (3) Cluster B Personality Disorder with Borderline traits (4) Insomnia: Condition on Discharge: Fair Activity: Resume your previous activity Non-emergency contact: Primary Care Provider and Psychiatrist Call non-emergency contact if: you have any medication questions and your sym ptoms worsen Follow-up/Referrals: [facility] [Primary Care Provider] - Diet: Regular Addtl Attending Provider Instructions: Continue Paroxetine 20mg at bedtime Continue Clonidine 0.05mg at bedtime Continue Abilify 2mg at bedtime Continue Vit D 125mcg daily, follow up with your primary care doctor in 3-6 months Pending Studies at Discharge: No Stand-Alone Forms: My [employer], Smoking Cessation Medications and DC Order Prescriptions: New clonidine HCl 0.1 mg Tablet 0.05 mg PO HS Qty: 15 0RF aripiprazole 2 mg Tablet 2 mg PO HS Qty: 30 0RF trazodone 50 mg Tablet 50 mg PO HS Qty: 30 0RF paroxetine HCl 20 mg Tablet 20 mg PO HS Qty: 30 0RF hydroxyzine HCl 25 mg Tablet 25 mg PO DAILY PRN (Reason: anxiety) Qty: 30 0RF cholecalciferol (vitamin D3) 125 mcg (5,000 unit) Tablet 125 mcg PO QAM Qty: 30 0RF Discontinued trazodone 50 mg Tablet 50 mg PO HS PRN (Reason: Insomnia) Rx Instructions: Can take 1-2 tabs propranolol 10 mg Tablet PO BID escitalopram oxalate [Lexapro] 10 mg Tablet 15 mg PO DAILY desvenlafaxine succinate [Pristiq] 25 mg Tablet Extended Release 24 Hr 25 mg PO DAILY hydroxyzine HCl 25 mg Tablet PO PRN (Reason: Anxiety) Discharge Orders: Discharge Order (Routine); Ordered 08/04/24 Ordered By: Beto Navarro Admission Data Admit Date/Time: 07/29/24 21:52 Attending Provider: Beto Navarro Admit Provider: Holly Mims Primary Care Provider: [facility] Coding [place] [address] D/C day mgmt > 30 min Patient Type Established History Detailed Exam Detailed Medical Decision Making High Complexity Diagnoses Generalized anxiety disorder with panic attacks F41.1; F41.0 Persistent depressive disorder with anxious distress, currently moderate F34.1 Borderline personality disorder F60.3 Insomnia G47.00
== END 2024-08-04 17:57 | disposition home or self-care (01) | DRG 885 ==
LOC: ED 14:36 → SUATTDRO 21:52 → 3S 21:52